=== PATIENT | male | born 1960 | race Caucasian/White ===

== ENCOUNTER 2021-02-22 07:42 | Day surgery (SDC) | payer BC ==
[2021-02-17 14:07] VITALS: BMI 32.8
[~2021-02-22 07:42] MED LIST: ACETAMINOPHEN TAB 500 MG TAB PO PRN; HEPARIN SODIUM,PORCINE/PF 5,000 UNIT/0.5 ML SYRINGE SQ PRN; Pre Op ABX Message 1 EACH MISC MISCELLANE ONE
[2021-02-22] MEDS ORDERED: LACTATED RINGERS 1,000 ML IV SCH (07:55)
[2021-02-22] MEDS ORDERED: HYDROmorphone 0.5 MG/0.5 ML SYRINGE IVP PRN (07:55)
[2021-02-22] MEDS ORDERED: SCOPOLAMINE 1.5MG/72HR PATCH TRANSDERM ONE (07:55)
[2021-02-22] MEDS ORDERED: LIDOCAINE 1% (10MG/ML) FOR IV START INTRADERMA PRN (07:55)
[2021-02-22] MEDS ORDERED: ONDANSETRON 4 MG/2 ML VIAL IVP ONE (07:55)
[2021-02-22 08:15] VITALS: RESP 16
[2021-02-22] MEDS ORDERED: DEXAMETHASONE SOD PHOSPHATE 4 MG/ML 1 ML VIAL IV ONE (08:15)
--- NOTE | 2021-02-22 08:51 | P.GSHP ---
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 He presents today for excision. Past Medical History Past Medical History: Cancer Additional Past Medical History / Comment(s): Current left shoulder skin cancer. History of Any Multi-Drug Resistant Organisms: None Reported Past Surgical History: Orthopedic Surgery Additional Past Surgical History / Comment(s): Left arm surgery, constantino in place. Past Anesthesia/Blood Transfusion Reactions: No Reported Reaction Past Psychological History: No Psychological Hx Reported Smoking Status: Never smoker Past Alcohol Use History: Occasional Past Drug Use History: None Reported - Past Family History Mother Family Medical History: Cancer Additional Family Medical History / Comment(s): Ovarian Cancer. Father Family Medical History: Cancer Additional Family Medical History / Comment(s): Skin Cancer. Medications and Allergies Home Medications Medication Instructions Recorded Confirmed Type No Known Home Medications 02/17/21 02/22/21 History Allergies Allergy/AdvReac Type Severity Reaction Status Date / Time No Known Allergies Allergy Verified 02/22/21 08:02 Surgical - Exam Vital Signs Temp Pulse Resp BP Pulse Ox 98.0 F 88 16 161/87 96 02/22/21 08:07 02/22/21 08:07 02/22/21 08:07 02/22/21 08:07 02/22/21 08:07 - General well developed, well nourished, no distress - Eyes PERRL - ENT normal pinna - Neck no masses - Respiratory normal expansion - Cardiovascular Rhythm: regular - Abdomen Abdomen: soft, non tender - Integumentary 3 cm malignant melanoma shave biopsy left shoulder Assessment and Plan Assessment: Malignant melanoma left shoulder. We'll perform wide local excision.
[2021-02-22] MEDS ORDERED: KETAMINE 10 MG/ML 20 ML VIAL ONE (08:56)
[2021-02-22] MEDS ORDERED: PROPOFOL 10 MG/ML 20 ML VIAL IV ONE (08:56)
[2021-02-22] MEDS ORDERED: fentaNYL (PF) 50 MCG/ML 2 ML AMP ONE (08:56)
[2021-02-22] MEDS ORDERED: MIDAZOLAM 2 MG/2 ML VIAL ONE (08:56)
[2021-02-22] MEDS ORDERED: BUPIVACAINE (PF) 0.25% 30 ML VIAL SQ ONE (09:18)
--- NOTE | 2021-02-22 09:31 | P.OP ---
Date of Procedure: 02/22/21 Preoperative Diagnosis: Malignant melanoma left shoulder Postoperative Diagnosis: Malignant melanoma left shoulder Procedure(s) Performed: Wide local excision malignant melanoma left shoulder Anesthesia: RUBIA Surgeon: Amos Cesar Estimated Blood Loss (ml): 10 Pathology: other (Malignant melanoma left shoulder) Condition: stable Disposition: PACU Description of Procedure: The patient's placed on the operating to in the lateral position. Seed IV sedation. The area of the melanoma was injected with 1% local Xylocaine. Elliptical skin incision was made around the lesion. The left cautery used to divide subcu tissue. The specimen measured approximately 4 x 3 cm. A suture tag was placed on the medial portion of the specimen. The skin was then closed with 3-0 nylon suture. Patient tolerated she will was sent to recovery room stable condition.
[2021-02-22 09:39] VITALS: TEMP 97
[2021-02-22 10:30] VITALS: BP 126/77; PULSE 71
== END 2021-02-22 10:46 | disposition home or self-care (01) ==
LOC: OR 07:42
PROVIDERS: ATTEND Surgery
DX: C74.12 Malignant neoplasm of medulla of left adrenal gland (principal); C43.62 Malignant melanoma of left upper limb, including shoulder; Z80.41 Family history of malignant neoplasm of ovary; Z80.8 Family history of malignant neoplasm of other organs or systems
CPT/HCPCS: 88305; 88342; 88341; 11604; J2250; J1100; J2405; J3010; J2704; J1644

== ENCOUNTER 2021-03-21 06:42 | Day surgery (SDC) | payer BC ==
[2021-03-16 13:39] VITALS: BMI 34.2
[~2021-03-21 06:42] MED LIST changes: +LACTATED RINGERS 1,000 ML IV SCH; -Pre Op ABX Message 1 EACH MISC MISCELLANE ONE
[2021-03-21 07:10] VITALS: RESP 16
[2021-03-21] MEDS ORDERED: ONDANSETRON 4 MG/2 ML VIAL ONE (07:12)
[2021-03-21] MEDS ORDERED: LIDOCAINE 1% (10MG/ML) FOR IV START INTRADERMA ONE (07:20)
[2021-03-21] MEDS ORDERED: DEXAMETHASONE SOD PHOSPHATE 4 MG/ML 1 ML VIAL IV ONE (07:20)
[2021-03-21] MEDS ORDERED: PROPOFOL 10 MG/ML 20 ML VIAL IV ONE (07:43)
[2021-03-21] MEDS ORDERED: MIDAZOLAM 2 MG/2 ML VIAL ONE (07:43)
[2021-03-21] MEDS ORDERED: KETOROLAC 15 MG/ML 1 ML VIAL ONE (07:43)
[2021-03-21] MEDS ORDERED: GLYCOPYRROLATE 0.2 MG/ML 2 ML VIAL ONE (07:43)
[2021-03-21] MEDS ORDERED: KETAMINE 10 MG/ML 20 ML VIAL ONE (07:43)
[2021-03-21] MEDS ORDERED: fentaNYL (PF) 50 MCG/ML 2 ML AMP ONE (07:43)
[2021-03-21] MEDS ORDERED: LIDOCAINE 1% INJ 10MG/ML (20 ML MDV) ONE (07:43)
[2021-03-21] MEDS ORDERED: SODIUM CHLORIDE 0.9% 50 ML with ceFAZolin 2,000 MG IV ONE ×2 (07:57)
[2021-03-21] MEDS ORDERED: BUPIVACAINE (PF) 0.25% 30 ML VIAL SQ ONE ×2 (08:13)
[2021-03-21 08:38] VITALS: TEMP 97.9
--- NOTE | 2021-03-21 08:49 | P.GSHP ---
History of Present Illness H&P Date: 03/21/21 Chief Complaint: Melanoma in situ Is a 60-year-old male who underwent recent wide local excision melanoma in situ. Patient has positive margin. He presents today for reexcision of melanoma in situ of his right upper shoulder Past Medical History Past Medical History: Cancer Additional Past Medical History / Comment(s): Current left shoulder skin cancer. History of Any Multi-Drug Resistant Organisms: None Reported Past Surgical History: Orthopedic Surgery Additional Past Surgical History / Comment(s): Left arm surgery, constantino in place. Skin cancer removed from left shoulder. Past Anesthesia/Blood Transfusion Reactions: No Reported Reaction Past Psychological History: No Psychological Hx Reported Smoking Status: Never smoker Past Alcohol Use History: None Reported Past Drug Use History: None Reported - Past Family History Mother Family Medical History: Cancer Additional Family Medical History / Comment(s): Ovarian Cancer. Father Family Medical History: Cancer Additional Family Medical History / Comment(s): Skin Cancer. Medications and Allergies Home Medications Medication Instructions Recorded Confirmed Type No Known Home Medications 02/17/21 03/21/21 History Allergies Allergy/AdvReac Type Severity Reaction Status Date / Time No Known Allergies Allergy Verified 03/21/21 06:59 Surgical - Exam Vital Signs Temp Pulse Resp BP Pulse Ox 97.8 F 79 16 159/93 95 03/21/21 07:09 03/21/21 07:09 03/21/21 07:09 03/21/21 07:09 03/21/21 07:09 - General well developed, well nourished, no distress - Eyes PERRL - ENT normal pinna - Neck no masses - Respiratory normal expansion - Cardiovascular Rhythm: regular - Abdomen Abdomen: soft, non tender - Integumentary 8 cm healing skin incision right upper shoulder from previous wide local excision Assessment and Plan Assessment: Mild in situ right upper shoulder. Patient will undergo reexcision of wide local excision
--- NOTE | 2021-03-21 08:51 | P.OP ---
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 He received IV sedation. His neck and shoulder were prepped and draped in sterile fashion. The patient a previous incision site from his melanoma excisions. An elliptical skin incision approximately 1 cm above the and below the scar was made. The skin and presents anesthetized 1% local Xylocaine. Using left cautery the subcutaneous tissue divided. Specimen was marked with a suture on the inferior portion. The skin was closed interrupted 3-0 nylon sutures. Sterile dressing applied. Patient top she will was sent to recovery room stable condition.
[2021-03-21 09:55] VITALS: BP 138/87; PULSE 79
== END 2021-03-21 10:01 | disposition home or self-care (01) ==
LOC: OR 06:42
PROVIDERS: ATTEND Surgery
DX: D03.62 Melanoma in situ of left upper limb, including shoulder (principal); Z80.41 Family history of malignant neoplasm of ovary; Z80.8 Family history of malignant neoplasm of other organs or systems
CPT/HCPCS: 23075; 88305; 88342; 88341; J2250; J1100; J2405; J0690; J2001; J3010; J1885; J2704; J1644